=== PATIENT | female | born 1955 | race Caucasian/White ===

== ENCOUNTER → 2016-07-31 | Day surgery (SDC) | payer BC ==
[~2016-07-31] MED LIST: ACETAMINOPHEN500 M5 PO; AVAPRO PO; GABAPENTIN600 MG PO; IBUPROFEN800 MG PO; NORVASC2.5 MG PO; OMEPRAZOLE40 M1 PO; PRILOSEC PO; REGLAN5 MG PO; TOPROL XL PO; TRAMADOL HCL50 M1 PO; TYLENOL; ZOLOFT PO; ZOLOFT100 MG PO
--- NOTE | ~2016-07-31 | OR ---
Unit #: [id number] #: [id number] Patient: ADRIEN TAVERAS [id number] [address] [address] [id number] O MR#: [id number] NAME: ADRIEN TAVERAS ROOM: Date of Procedure: 07/31/2016 Admission Date: 07/31/2016 Surgeon: Leodan Stephens M.D. : 1955 Attending Physician: Leodan Stephens M.D. Primary Care Physician: Jaison Stringer M.D. OPERATIVE REPORT PREOPERATIVE DIAGNOSES Back pain, radiculopathy, lumbar disk herniation, spinal stenosis, degenerative disk disease. POSTOPERATIVE DIAGNOSES Back pain, radiculopathy, lumbar disk herniation, spinal stenosis, degenerative disk disease. PROCEDURE PERFORMED Lumbar epidural steroid injection with intravenous sedation and fluoroscopic guidance for needle localization. INDICATIONS FOR PROCEDURE The patient is a 60-year-old female with back, bilateral lower extremity pain, paresthesia, numbness worsened in the left than the right. She is morbidly obese. She has multilevel significant degenerative disk disease, severe stenosis at L3-L4 and L4-L5, left-sided disk herniation at L4-L5 and right-sided L5-S1. Due to morbid obesity, she is a poor surgical candidate at this point. Plan is for trial of epidural steroids hopefully better palliate her symptom complex. DESCRIPTION OF PROCEDURE The patient was placed in a seated position. Standard monitors were applied. 2 mg of Versed were given for sedation and anxiolysis, which were adequate. Vital signs remained stable. Sterile prep and drape then of lumbar area was performed. The skin then at the L3 level was localized with 1% lidocaine. An 18-gauge [employer] needle was then advanced via loss of resistance technique and fluoroscopic guidance in toward the epidural space. After confirming proper positioning with fluoroscopy and radiographic contrast, 80 mg of Depo-Medrol and 6 mL of 0.5% lidocaine were deposited. The patient tolerated the procedure otherwise well and was discharged to recovery room in stable condition. Dictated by... Cindy Anglin/tae TD: 07/31/2016 22:45 JOB #: [id number] Unit #: [id number] #: [id number] Patient: ADRIEN TAVERAS OPERATIVE REPORT Page 1 of 1 X Leodan Stephens MD X PROCEDURE OPERATIVE NOTE
== END | disposition home or self-care (01) ==
LOC: CCSC 10:50
DX: M51.16 Intervertebral disc disorders with radiculopathy, lumbar region (principal); M48.06 Spinal stenosis, lumbar region; E66.01 Morbid (severe) obesity due to excess calories
CPT/HCPCS: J1040; J2250

== ENCOUNTER → 2016-08-07 | Day surgery (SDC) | payer BC ==
--- NOTE | ~2016-08-07 | OR ---
Unit #: [id number] #: [id number] Patient: ADRIEN TAVERAS [id number] [address] [address] [id number] O MR#: [id number] NAME: ADRIEN TAVERAS ROOM: Date of Procedure: 08/07/2016 Admission Date: 08/07/2016 Surgeon: Leodan Stephens M.D. : 1955 Attending Physician: Leodan Stephens M.D. Primary Care Physician: Jaison Stringer M.D. PROCEDURE OPERATIVE NOTE PREOPERATIVE DIAGNOSES 1. Herniated nucleus pulposus. 2. Spinal stenosis. 3. Back pain. 4. Radiculopathy. POSTOPERATIVE DIAGNOSES 1. Herniated nucleus pulposus. 2. Spinal stenosis. 3. Back pain. 4. Radiculopathy. PROCEDURE PERFORMED Lumbar epidural steroid injection with intravenous sedation and fluoroscopic guidance for needle localization. HISTORY The patient is a 60-year-old female with back and bilateral lower extremity pain, left greater than right, which failed to settle with conservative treatment. Workup done revealed severe spinal stenosis at L3-4 and 4-5, left-sided disc herniation at L4-5 level, right-sided L5-S1 with impingement. Initial epidural steroid injection did not result in substantial change to symptom complex. Will proceed with repeat injection at a different level based on her pathology, symptomatology, and limited treatment options. PROCEDURE The patient was placed in a seated position. Standard monitors were applied. Two milligrams of Versed were given for sedation and anxiolysis which were adequate. Vital signs remained stable. Sterile prep and drape down to the lumbar area was performed. The skin at the L5-S1 level was localized with 1% lidocaine and an 18-gauge [employer] needle was advanced via loss of resistance technique and fluoroscopic guidance in toward the epidural space. After confirming proper positioning with fluoroscopy and radiographic contrast, 80 mg of Depo Medrol and 6 mL of 0.5% lidocaine were deposited. The patient tolerated the procedure otherwise well and was discharged to the recovery room in stable condition. Dictated by... Unit #: [id number] #: [id number] Patient: ADRIEN TAVERAS Leodan Stephens M.D. [facility]/alfred TD: 08/07/2016 12:38 JOB #: [id number] CC: Kai Wakefield M.D. PROCEDURE OPERATIVE NOTE Page 1 of 1 X Leodan Stephens MD X PROCEDURE OPERATIVE NOTE
== END | disposition home or self-care (01) ==
LOC: CCSC 11:16
DX: M51.17 Intervertebral disc disorders with radiculopathy, lumbosacral region (principal); M48.06 Spinal stenosis, lumbar region
CPT/HCPCS: J1040; J2250

== ENCOUNTER → 2016-08-14 | Day surgery (SDC) | payer BC ==
--- NOTE | ~2016-08-14 | OR ---
Unit #: [id number] #: [id number] Patient: ADRIEN TAVERAS [id number] [address] [address] [id number] O MR#: [id number] NAME: ADRIEN TAVERAS ROOM: Date of Procedure: 08/14/2016 Admission Date: 08/14/2016 Surgeon: Leodan Stephens M.D. : 1955 Attending Physician: Leodan Stephens M.D. Primary Care Physician: Jaison Stringer M.D. OPERATIVE REPORT PREOPERATIVE DIAGNOSES 1. Back pain. 2. Radiculopathy. 3. Herniated nucleus pulposus. 4. Lumbar spinal stenosis. POSTOPERATIVE DIAGNOSES 1. Back pain. 2. Radiculopathy. 3. Herniated nucleus pulposus. 4. Lumbar spinal stenosis. PROCEDURE PERFORMED Lumbar epidural steroid injection with intravenous sedation and fluoroscopic guidance for needle localization. HISTORY This is a 60-year-old female with back and bilateral lower extremity pains. Workup demonstrated significant degenerative disk disease and severe stenosis at the L3-L4 and L4-L5 levels, left-sided disk herniation at L4-L5 and right-sided L5-S1, with impingement. The patient is not considered currently a surgical candidate due to morbid obesity. She is working on losing weight, we are trying other modalities to control her pain. She has had 2 epidural steroid injections at this point, which gave some added improvement in her back greater than leg pains. Her leg still do feel heavy at times when she walks. We are going to proceed with a final injection at this point. We will follow the patient back up in several weeks' time at the office just to see how she has done and see her for her other modalities we can use to help her. DESCRIPTION OF PROCEDURE The patient was placed in the seated position. Standard monitors were applied. Versed 2 mg were given for sedation and anxiolysis, which were adequate. Vital signs remained stable. Sterile prep and drape then of the lumbar area was performed. The skin at the L3 level was localized with 1% lidocaine. An 18-gauge [employer] needle was then advanced via loss of resistance technique and fluoroscopic guidance in toward the epidural space. After confirming proper positioning with fluoroscopy and radiographic contrast, 80 mg of Depo-Medrol and 6 mL of 0.125% bupivacaine were deposited. The patient tolerated the procedure otherwise well and was discharged to the recovery room in stable condition. Unit #: [id number] #: [id number] Patient: ADRIEN TAVERAS Dictated by... Cindy Anglin/tae TD: 08/14/2016 12:37 JOB #: [id number] OPERATIVE REPORT Page 1 of 1 X Leodan Stephens MD X PROCEDURE OPERATIVE NOTE
== END | disposition home or self-care (01) ==
LOC: CCSC 10:58
DX: M51.16 Intervertebral disc disorders with radiculopathy, lumbar region (principal); M48.06 Spinal stenosis, lumbar region; E66.01 Morbid (severe) obesity due to excess calories; I10 Essential (primary) hypertension
CPT/HCPCS: J1040; J2250